=== PATIENT | male | born 1945 | race African-American/Black ===

== ENCOUNTER 2017-11-15 11:16 | Emergency (ER) | payer MEDICARE, MEDICAID ==
[~2017-11-15] VITALS: Ht 175.3 cm; Wt 105.0 kg
[~2017-11-15 11:16] MED LIST: AMLO10TA4 PO; ASA; CHLO4TAB PO; CYCL5TAB; ESOM40CA PO; GABA-533; HYDR-3162; HYDR25TA; IBUPROFEN; METF500T PO; METH-612; OMEP40CA34; SIMV10TA6 PO; VICODIN
[2017-11-15] MEDS ORDERED: ACETAMINOPHEN WITH CODEINE 300/30MG TABLET PO ONE (14:15)
[2017-11-15] MEDS ORDERED: KETOROLAC 60MG/2ML VIAL IM ONE (14:15)
[2017-11-15] MEDS ORDERED: METHOCARBAMOL 500MG TABLET PO ONE (14:15)
[2017-11-15 17:00] VITALS: BP 129/77
== END 2017-11-15 17:03 | disposition home or self-care (01) ==
LOC: ER 11:53
DX: S43.401A Unspecified sprain of right shoulder joint, initial encounter (principal); S43.402A Unspecified sprain of left shoulder joint, initial encounter; S13.9XXA Sprain of joints and ligaments of unspecified parts of neck, initial encounter; S33.5XXA Sprain of ligaments of lumbar spine, initial encounter; M19.90 Unspecified osteoarthritis, unspecified site; E11.9 Type 2 diabetes mellitus without complications; E78.00 Pure hypercholesterolemia, unspecified; I10 Essential (primary) hypertension; M41.9 Scoliosis, unspecified; F12.10 Cannabis abuse, uncomplicated; M47.896 Other spondylosis, lumbar region; Z90.49 Acquired absence of other specified parts of digestive tract; Z79.84 Long term (current) use of oral hypoglycemic drugs; V43.52XA Car driver injured in collision with other type car in traffic accident, initial encounter; Y93.89 Activity, other specified; Y92.488 Other paved roadways as the place of occurrence of the external cause
CPT/HCPCS: 71045; 72110; 72125; 73030; 73562; 96372; 99284; J1885

== ENCOUNTER → 2018-11-09 | Outpatient (CLI) | payer MEDICARE, MEDICAID ==
[~2018-11-09] MED LIST changes: +ATOR20TA PO; +DEXL60CA3 PO; +PENT400T16 PO; +PREG50CA PO
== END | disposition home or self-care (01) ==
LOC: CARD 10:47
PROVIDERS: ATTEND General Practice
DX: Z01.818 Encounter for other preprocedural examination (principal)
CPT/HCPCS: 93005

== ENCOUNTER 2018-11-29 06:03 | Day surgery (SDC) | payer MEDICARE, MEDICAID ==
[~2018-11-29] VITALS: Ht 188 cm; Wt 111.1 kg
[~2018-11-29 06:03] MED LIST changes: -ASA; -CHLO4TAB PO; -CYCL5TAB; -DEXL60CA3 PO; -ESOM40CA PO; -GABA-533; -HYDR-3162; -HYDR25TA; -IBUPROFEN; -METH-612; -OMEP40CA34; -PENT400T16 PO; -PREG50CA PO; -SIMV10TA6 PO; -VICODIN
[2018-11-29] MEDS ORDERED: LACTATED RINGERS 1,000 ML IV SCH (06:40)
[2018-11-29] MEDS ORDERED: PREG50CA PO (06:55)
[2018-11-29] MEDS ORDERED: PENT400T16 PO (06:55)
[2018-11-29] MEDS ORDERED: DEXL60CA3 PO (06:55)
[2018-11-29] MEDS ORDERED: BUPIVACAINE HCL/PF 0.5% (5MG/ML) 10ML ONE (07:15)
[2018-11-29] MEDS ORDERED: BACITRACIN 15GM TUBE TOP ONE (07:15)
[2018-11-29] MEDS ORDERED: PROPOFOL 200MG/20ML VIAL IV ONE ×2 (07:26→08:01)
[2018-11-29] MEDS ORDERED: FENTANYL CITRATE/PF 50MCG/ML 2ML VIAL ONE (07:26)
[2018-11-29] MEDS ORDERED: MIDAZOLAM HCL 2 MG/2 ML VIAL ONE (07:26)
[2018-11-29] MEDS ORDERED: ONDANSETRON HCL 4MG/2ML INJ ONE (08:00)
[2018-11-29] MEDS ORDERED: DEXAMETHASONE 4MG/ML 1ML VIAL ONE (08:00)
[2018-11-29] MEDS ORDERED: LABETALOL 5MG/ML SYR 20 MG/4 ML SYRINGE IV PRN (08:30)
[2018-11-29] MEDS ORDERED: HYDROMORPHONE HCL/PF 2MG/ML CPJ IV PRN (08:30)
[2018-11-29] MEDS ORDERED: ONDANSETRON HCL 4MG/2ML INJ IV PRN (08:30)
[2018-11-29] MEDS ORDERED: MEPERIDINE HCL/PF 25MG/ML CPJ IV PRN (08:30)
[2018-11-29] MEDS ORDERED: ACETAMINOPHEN WITH CODEINE 300/30MG TABLET PO PRN (09:00)
== END 2018-11-29 11:10 | disposition home or self-care (01) ==
LOC: OR 06:03
PROVIDERS: ATTEND Urology
DX: N47.1 Phimosis (principal); E11.9 Type 2 diabetes mellitus without complications; I10 Essential (primary) hypertension; M19.90 Unspecified osteoarthritis, unspecified site; F17.210 Nicotine dependence, cigarettes, uncomplicated; Z79.84 Long term (current) use of oral hypoglycemic drugs; Z79.899 Other long term (current) drug therapy
CPT/HCPCS: 54161; 82962; J1100; J2250; J2405; J2704; J3010; J3490

== ENCOUNTER 2019-04-14 13:26 | Emergency (ER) | payer MEDICARE, MEDICAID ==
[~2019-04-14] VITALS: Ht 185.4 cm; Wt 109.0 kg
[~2019-04-14 13:26] MED LIST changes: +DEXL60CA3 PO; +PENT400T16 PO; +PREG50CA PO
[2019-04-14 15:10] VITALS: BP 125/79
[2019-04-14] MEDS: KETOROLAC 60MG/2ML VIAL IM ONE (15:10)
== END 2019-04-14 16:34 | disposition home or self-care (01) ==
LOC: ER 13:26
DX: M54.5 Low back pain (principal); G89.29 Other chronic pain; E11.9 Type 2 diabetes mellitus without complications; E78.00 Pure hypercholesterolemia, unspecified; I10 Essential (primary) hypertension; Z90.49 Acquired absence of other specified parts of digestive tract; Z87.19 Personal history of other diseases of the digestive system; Z98.890 Other specified postprocedural states; F17.290 Nicotine dependence, other tobacco product, uncomplicated; F12.10 Cannabis abuse, uncomplicated; Z79.899 Other long term (current) drug therapy
CPT/HCPCS: 72100; 96372; 99283; J1885

== ENCOUNTER 2025-02-28 10:28 | Emergency (ER) | payer BC, MEDICAID ==
[~2025-02-28] VITALS: Ht 182.9 cm; Wt 75.0 kg
[~2025-02-28 10:28] MED LIST changes: +AMLO-905 PO; -AMLO10TA4 PO
[2025-02-28 10:49] VITALS: O2SAT 98
[2025-02-28] MEDS ORDERED: GABA800T97 PO (10:54)
[2025-02-28] MEDS ORDERED: SERT25TA PO (10:54)
[2025-02-28] MEDS ORDERED: DOCU-405 PO (10:54)
[2025-02-28] MEDS ORDERED: NAPR-1176 PO (10:54)
[2025-02-28] MEDS ORDERED: OMEP40CA20 PO (10:54)
[2025-02-28] MEDS ORDERED: KETO10TA2 MT (12:58)
[2025-02-28 13:11] VITALS: TEMP 36.7; O2SAT 98
[2025-02-28 13:12] VITALS: BP 138/78; PULSE 99; RESP 18
[2025-02-28] MEDS: KETOROLAC 15MG/ML VIAL IM ONE (13:12)
== END 2025-02-28 13:15 | disposition home or self-care (01) ==
LOC: ER 10:28
DX: M25.562 Pain in left knee (principal); E11.9 Type 2 diabetes mellitus without complications; F12.90 Cannabis use, unspecified, uncomplicated; E78.00 Pure hypercholesterolemia, unspecified; I10 Essential (primary) hypertension; Z79.84 Long term (current) use of oral hypoglycemic drugs; Z79.899 Other long term (current) drug therapy; Z90.49 Acquired absence of other specified parts of digestive tract; W01.0XXA Fall on same level from slipping, tripping and stumbling without subsequent striking against object, initial encounter; Y93.89 Activity, other specified; Y92.89 Other specified places as the place of occurrence of the external cause; Y99.8 Other external cause status
CPT/HCPCS: 99283; 73562; 96372; J1885; A6449